=== PATIENT | male | born 1990 | race Caucasian/White ===

== ENCOUNTER 2019-02-24 18:04 | Inpatient (IN) ==
[2019-02-24 19:05] LABS: Bilirubin,Urine Negative (Negative); Blood,Urine Negative (Negative); Clarity,Urine Turbid (Clear); Color,Urine Yellow (Yellow); Glucose,Urine (UA) Normal (Normal); Ketones,Urine Negative (Negative); Leukocyte Esterase,Urine Negative (Negative); Nitrite,Urine Negative (Negative); Protein,Urine Trace mg/dL (Neg-Trace); Specific Gravity,Urine 1.018 (1.010-1.025); Urobilinogen,Urine Normal (Normal)
--- NOTE | 2019-02-24 19:05 | Emergency Department Note ---
Disposition Clinical Impression: Suicidal ideation Disposition: Admitted As Inpatient Condition: Fair Referrals: NONE,PCP [Primary Care Provider] - Forms: ED Satisfaction Letter General Adult HPI - General Chief complaint: ED Psychiatric Symptoms Stated complaint: SI Time Seen by Provider: 02/24/19 18:22 Source: patient Mode of arrival: ambulatory Limitations: no limitations Nursing Notes Reviewed: Yes Vital Signs Reviewed: Yes - History of Present Illness HPI Narrative: Patient is a 29-year-old male with past medical history of depression and PTSD as well as heroin abuse presents to the emergency department for evaluation of symptoms of feeling depressed, easily angered and thoughts that is like should and that he has no plan. States she was recently seen here in January 2019 and admitted to the 1A service. He states he was doing much better and discharged home with a prescription and follow up however he has had difficulty with follow-up due to his appointments being rescheduled by the facility [facility]. She states she is concerned that he is headed back to the direction about him and his prior visit. He denies any hallucinations. Denies any homicidal ideations. Admits to heroin use in the last week. Pain Scale: 0 - Related Data Home Medications Medication Instructions Recorded Confirmed Buprenorphine HCl/Naloxone HCl 1.5 tab PO DAILY 12/24/18 12/24/18 [Buprenorphin-Naloxon 8-2 mg Sl] Allergies Allergy/AdvReac Type Severity Reaction Status Date / Time Penicillins Allergy Redness of Verified 12/23/18 13:46 Skin All systems ED: reviewed and negative except as stated. Review of Systems: As Per HPI Psychiatric: Reports: depression, suicidal thoughts. Denies: homicidal thoughts, auditory hallucinations, visual hallucinations Past Medical History - Past Medical History Attestation: Yes The following information was validated with the patient. Medical history: Reports: no medical history Surgical history: Reports: tonsillectomy Psychiatric history: Reports: depression, PTSD - Social History Smoking Status: Current every day smoker Smokeless Tobacco Status: No Alcohol use: Reports: none Drug use: Reports: other Physical Exam CONSTITUTIONAL: Alert and oriented X3. In no apparent distress HEAD: Normocephalic; atraumatic. EYES: PERRL, no scleral icterus. NOSE: The nose is normal in appearance without rhinorrhea RESP: Normal chest excursion with respiration; breath sounds clear and equal bilaterally; no wheezes, rhonchi, or rales CARD: Regular rhythm, without murmurs, rub or gallop ABD: Non-distended; non-tender, soft,without rigidity, rebound or guarding SKIN: Normal for age and race; warm and dry; no apparent lesions PSYCH: Admits to suicidal thoughts without a plan. No homicidal thoughts. Depressed. - General Limitations: no limitations General appearance: alert, in no apparent distress Course Course Narrative: Patient will undergo undergo evaluation for medical clearance to be seen by the psychiatric 1A team for further evaluation and treatment. There is a sitter at the bedside and the patient's belongings were put safely away he was put in a gown. His girlfriend is at bedside. Vital Signs Temperature 97.7 F 02/24/19 18:06 Pulse Rate 76 02/24/19 18:06 Respiratory Rate 18 02/24/19 18:06 Blood Pressure 110/68 02/24/19 18:06 O2 Sat by Pulse Oximetry 99 02/24/19 18:06 Temperature 97.7 F 02/24/19 18:06 Pulse Rate 76 02/24/19 18:06 Respiratory Rate 18 02/24/19 18:06 Blood Pressure 110/68 02/24/19 18:06 O2 Sat by Pulse Oximetry 99 02/24/19 18:06 Oxygen Delivery Oxygen Delivery Room Air Medical Decision Making - Medical Records Medical records reviewed: Yes I reviewed the patient's medical records. - Lab Data Lab results reviewed: Yes I reviewed the patient's lab results. Result diagrams: 02/24/19 18:28 02/24/19 18:28 Lab Results 02/24/19 02/24/19 02/24/19 Range/Units 18:28 18:28 18:55 WBC 9.4 (4.3-11.1) K/mcL RBC 4.86 (4.19-5.50) M/mcL Hgb 14.5 (12.9-16.9) g/dL Hct 43.9 (37.5-50.1) % MCV 90.3 (83.0-100.0) fL MCH 29.8 (28.0-33.3) pg MCHC 33.0 (31.6-35.5) g/dL RDW 12.6 (11.5-14.5) % Plt Count 200 (140-400) K/mcL MPV 10.6 (9.4-12.4) fL Immature Gran % 0.4 (0-4) % Seg Neutrophils % 50.5 % Lymphocytes % 36.1 % Monocytes % 9.4 % Eosinophils % 3.0 % Basophils % 0.6 % Neutrophils # 4.8 (1.6-8.9) K/mcL Lymphocytes # 3.4 (0.6-4.6) K/mcL Monocytes # 0.9 (0.0-1.3) K/mcL Eosinophils # 0.3 (0.0-0.6) K/mcL Basophils # 0.1 (0.0-0.2) K/mcL Sodium 136 (136-145) mEq/L Potassium 4.1 (3.5-5.1) mEq/L Chloride 106 (98-107) mEq/L Carbon Dioxide 28 (23-29) mEq/L BUN 11 (6-20) mg/dL Creatinine 0.59 L (0.70-1.30) mg/dL Est GFR ( Amer) > 60 (> 60) Est GFR (Non-Af Amer) > 60 (> 60) BUN/Creatinine Ratio 19 (6-26) Glucose 115 H (70-105) mg/dL Calculated Osmolality 282 (280-300) Calcium 9.4 (8.6-10.3) mg/dL Urine Color Yellow (Yellow) Urine Clarity Turbid A (Clear) Urine pH 7.0 (5.0-8.0) pH Units Ur Specific [place] 1.018 (1.010-1.025) Urine Protein Trace (Neg-Trace) mg/dL Urine Glucose (UA) Normal (Normal) mg/dL Urine Ketones Negative (Negative) mg/dL Urine Blood Negative (Negative) Urine Nitrite Negative (Negative) Urine Bilirubin Negative (Negative) Urine Urobilinogen Normal (Normal) mg/dL Ur Leukocyte Esterase Negative (Negative) Urine Microscopic RBC 5-15 H (0-3) per hpf Urine Microscopic WBC 0-3 (0-3) per hpf Ur Squamous Epith Cells None Seen (None-Few) per lpf Urine Bacteria None Seen (None-Few) per hpf Hyaline Casts None Seen (None-Few) per lpf Salicylates < 2.5 L (15.0-30.0) mg/dL Urine Opiates Screen (Wtynvt=286) ng/mL Acetaminophen < 10 L (10-20) mcg/mL Ur Barbiturates Screen (Hicjmo=845) ng/mL Ur Phencyclidine Scrn (Cutoff=25) ng/mL Ur Amphetamines Screen (Wyczvj=4583) ng/mL U Benzodiazepines Scrn (Lxajce=720) ng/mL Urine Cocaine Screen (Cutoff= 300) ng/mL U Marijuana (THC) Screen (Cutoff = 50) ng/mL Ur Drug Screen Interp Ethyl Alcohol < 10 (Less than 10) mg/dL 02/24/19 Range/Units 18:55 WBC (4.3-11.1) K/mcL RBC (4.19-5.50) M/mcL Hgb (12.9-16.9) g/dL Hct (37.5-50.1) % MCV (83.0-100.0) fL MCH (28.0-33.3) pg MCHC (31.6-35.5) g/dL RDW (11.5-14.5) % Plt Count (140-400) K/mcL MPV (9.4-12.4) fL Immature Gran % (0-4) % Seg Neutrophils % % Lymphocytes % % Monocytes % % Eosinophils % % Basophils % % Neutrophils # (1.6-8.9) K/mcL Lymphocytes # (0.6-4.6) K/mcL Monocytes # (0.0-1.3) K/mcL Eosinophils # (0.0-0.6) K/mcL Basophils # (0.0-0.2) K/mcL Sodium (136-145) mEq/L Potassium (3.5-5.1) mEq/L Chloride (98-107) mEq/L Carbon Dioxide (23-29) mEq/L BUN (6-20) mg/dL Creatinine (0.70-1.30) mg/dL Est GFR ( Amer) (> 60) Est GFR (Non-Af Amer) (> 60) BUN/Creatinine Ratio (6-26) Glucose (70-105) mg/dL Calculated Osmolality (280-300) Calcium (8.6-10.3) mg/dL Urine Color (Yellow) Urine Clarity (Clear) Urine pH (5.0-8.0) pH Units Ur Specific [place] (1.010-1.025) Urine Protein (Neg-Trace) mg/dL Urine Glucose (UA) (Normal) mg/dL Urine Ketones (Negative) mg/dL Urine Blood (Negative) Urine Nitrite (Negative) Urine Bilirubin (Negative) Urine Urobilinogen (Normal) mg/dL Ur Leukocyte Esterase (Negative) Urine Microscopic RBC (0-3) per hpf Urine Microscopic WBC (0-3) per hpf Ur Squamous Epith Cells (None-Few) per lpf Urine Bacteria (None-Few) per hpf Hyaline Casts (None-Few) per lpf Salicylates (15.0-30.0) mg/dL Urine Opiates Screen Positive H (Rzygkl=438) ng/mL Acetaminophen (10-20) mcg/mL Ur Barbiturates Screen Negative (Kdvxgb=769) ng/mL Ur Phencyclidine Scrn Negative (Cutoff=25) ng/mL Ur Amphetamines Screen Negative (Ectwvu=0774) ng/mL U Benzodiazepines Scrn Negative (Wchxsh=930) ng/mL Urine Cocaine Screen Negative (Cutoff= 300) ng/mL U Marijuana (THC) Screen Negative (Cutoff = 50) ng/mL Ur Drug Screen Interp See Below Ethyl Alcohol (Less than 10) mg/dL S.B.A.R. - S.B.A.R. Situation: Demographics, MOA Background: Presenting Complaint, Relevant PMH, Meds, & Allergies Assessment: Vital Signs, Course and respsone to treatment, Exam Concerns, Patient/Family Expectation, Pertinant Lab Results, Outstanding Labs Recommendation: Barrier(s) to disposition, Recommendation based on pending st udies, treatments, or consults S.B.A.R. Report Given to: Dr. Yassine Zurita S.B.A.R. Repor Time: 19:44 Attestation Statement - Attestation Attestation: I, Yassine Zurita, examined this patient and my medical decision-making was reviewed with the MANAGER PHARMACY/PA/Advanced Practice Nurse/Resident Physician. I agree with the documented findings, disposition and treatment plan as described except to the extent set forth below. 29-year-old male brought to emergency department for evaluation of anxiety, depression, suicidal ideation. Patient was recently discharged from the hospital and he is been unable to obtain psychiatric follow-up. Patient feels these have not wrong direction". Patient does not have a concrete plan. Patient was medically cleared and evaluated by behavioral health who accepted him to 1A. patient comfortable to plan of action.
[2019-02-24 19:08] LABS: Basophils # 0.1 K/mcL (0.0-0.2); Basophils % 0.6 %; Eosinophils # 0.3 K/mcL (0.0-0.6); Hematocrit 43.9 % (37.5-50.1); Hemoglobin 14.5 g/dL (12.9-16.9); Immature Granulocytes % 0.4 % (0-4); Lymphocytes # 3.4 K/mcL (0.6-4.6); Lymphocytes % 36.1 %; Mean Corpuscular Hemoglobin 29.8 pg (28.0-33.3); Mean Corpuscular Volume 90.3 fL (83.0-100.0); Mean Platelet Volume 10.6 fL (9.4-12.4); Monocytes # 0.9 K/mcL (0.0-1.3); Monocytes % 9.4 %; Neutrophils # 4.8 K/mcL (1.6-8.9); Platelet Count 200 K/mcL (140-400); Red Blood Count 4.86 M/mcL (4.19-5.50); Red Cell Distribution Width 12.6 % (11.5-14.5); Segmented Neutrophils % 50.5 %
[2019-02-24 19:08] LABS: Bacteria,Urine None Seen per hpf (None-Few); Hyaline Casts,Urine None Seen per lpf (None-Few); Squamous Epithelial Cell,Urine None Seen per lpf (None-Few); WBC,Urine 0-3 per hpf (0-3)
[2019-02-24 19:15] LABS: Amphetamine Screen,Urine Negative ng/mL (Cutoff=1000); Barbiturate Screen,Urine Negative ng/mL (Cutoff=200); Benzodiazepines Screen,Urine Negative ng/mL (Cutoff=200); Cannabinoid Screen,Urine Negative ng/mL (Cutoff = 50); Cocaine Screen,Urine Negative ng/mL (Cutoff= 300); Opiate Screen,Urine Positive ng/mL (Cutoff=300); Phencyclidine Screen,Urine Negative ng/mL (Cutoff=25)
[2019-02-24 19:25] LABS: Acetaminophen < 10 mcg/mL (10-20); BUN/Creatinine Ratio 19 (6-26); Blood Urea Nitrogen 11 mg/dL (6-20); Calcium 9.4 mg/dL (8.6-10.3); Carbon Dioxide 28 mEq/L (23-29); Chloride 106 mEq/L (98-107); Ethanol < 10 mg/dL (Less than 10); Glucose 115 mg/dL (70-105); Osmolality,Calculated 282 (280-300); Potassium 4.1 mEq/L (3.5-5.1); Salicylate < 2.5 mg/dL (15.0-30.0); Sodium 136 mEq/L (136-145); eGFR For Non-African Americans > 60 (> 60)
[2019-02-24] MEDS ORDERED: Acetaminophen 325 MG TABLET PO PRN (22:25)
[2019-02-24] MEDS ORDERED: Mag Hydrox/Al Hydrox/Simeth 30 ML UDC PO PRN (22:25)
[2019-02-24] MEDS ORDERED: *HR* LORazepam 1 MG TABLET PO PRN (22:25)
[2019-02-24] MEDS ORDERED: *HR* LORazepam 2 MG/ML VIAL IM PRN (22:25)
[2019-02-24] MEDS ORDERED: MOM Conc 10 ML UD.LIQ PO PRN (22:25)
[2019-02-24] MEDS ORDERED: Haloperidol Lactate 5 MG/ML VIAL IM PRN (22:25)
[2019-02-24] MEDS: traZODone 50 MG TABLET PO PRN (23:29)
[2019-02-24] MEDS: hydrOXYzine pamoate 25 MG CAPSULE PO PRN (23:29)
[2019-02-25] MEDS: Nicotine 21 MG PATCH.TD24 TD SCH (09:46)
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
[2019-02-25] MEDS: *HR* Buprenorphine HCl 8 MG TAB.SUBL SL SCH (11:19)
[2019-02-25] MEDS ORDERED: *HR* Buprenorphine HCl 2 MG SUBLINGUAL TABLET SL SCH (21:00)
[2019-02-25] MEDS: hydrOXYzine pamoate 25 MG CAPSULE PO PRN (21:04)
[2019-02-25] MEDS: traZODone 50 MG TABLET PO PRN (21:04)
[2019-02-26] MEDS: *HR* Buprenorphine HCl 8 MG TAB.SUBL SL SCH (08:42)
[2019-02-26] MEDS: Nicotine 21 MG PATCH.TD24 TD SCH (08:42)
--- NOTE | 2019-02-26 10:35 | Psychiatry Progress Note ---
Date of Encounter: 02/26/19 Time of Encounter: 10:31 Subjective Interval history: patient has been isolating to his room. Remains depressed and hopeless with a lack of itnerests and excess guilt. Poor sleep. Is tolerating being back on meds. Wants linked with a new agency. Didn't attend any groups. Review of Systems Psychiatric: Reports: depression, suicidal ideation, change in appetite, hopelessness, irritability. Denies: homicidal ideation, auditory hallucinations, visual hallucinations Results - Vital Signs Vital Signs: Temp Pulse Resp BP Pulse Ox 97.5 F L 90 18 107/71 95 02/26/19 09:00 02/26/19 09:00 02/26/19 09:00 02/26/19 09:00 02/26/19 09:00 Assessment and Plan (1) Depression Current visit: No Status: Acute Plan: Continue hospitalization, Close observation, Suicide Precautions per unit protocol, Encourage participation in unit milieu, Group Therapy, Monitor sleep, Monitor appetite Additional Plan: Continue current medications, encourage groups, therapist working on linkage Risks, benefits, side effects, alternatives discussed w/pt: Yes Patient agreeable to treatment: Yes Qualifiers: Depression Type: major depressive disorder Major depression recurrence: single episode Active/Remission status: currently active Major depression episode severity: severe Psychotic features: without psychotic features Qualified Code(s): F32.2 - Major depressive disorder, single episode, severe without psychotic features Consult Discharge Plan - Plan Referrals: NONE,PCP [Primary Care Provider] - Psychiatry Exam - Constitutional Vitals: Temp Pulse Resp BP Pulse Ox 97.5 F L 90 18 107/71 95 02/26/19 09:00 02/26/19 09:00 02/26/19 09:00 02/26/19 09:00 02/26/19 09:00 General appearance: age & developmentally appropriate, well-groomed, well- nourished - Musculoskeletal Gait: normal Station: relaxed Strength & Tone: normal for patient - Psychiatric Patient Orientation: Yes Person, Yes Time, Yes Place Level of alertness: Alert Behavior: calm, cooperative Psychomotor activity: Normal Eye Contact: Maintains Eye Contact Mood Description: Euthymic/stable Patient description of mood: better Affect description: congruent with mood, full range Speech Volume: Normal Speech pattern: normal rate, normal rhythm, normal tone, fluent, spontaneous Language & Vocabulary: consistent with education Thought Process: Linear, Goal Oriented Thought Content: No Suicidal ideation, No Homicidal ideation, No Overt delusions Perceptual Disturbances: No Auditory hallucinations, No Visual hallucinations Attention Span Ability: Capable of Focused Attention Memory Description: Grossly Intact Patient Reliability: Reliable Historian Fund of knowledge: Yes abstraction ability, Yes aware of current events Intelligence Estimate: Average Judgment: Limited Insight: Partial
[2019-02-26] MEDS: *HR* Buprenorphine HCl 2 MG SUBLINGUAL TABLET SL SCH (18:28)
[2019-02-26] MEDS: hydrOXYzine pamoate 25 MG CAPSULE PO PRN (21:48)
[2019-02-26] MEDS: traZODone 50 MG TABLET PO PRN (21:48)
--- NOTE | 2019-02-27 08:03 | Psychiatry Progress Note ---
Date of Encounter: 02/27/19 Time of Encounter: 08:01 Subjective Interval history: patient says he is feeling better. No SI/HI. No psychosis. He is managing meds. No side effects. Review of Systems Psychiatric: Reports: depression. Denies: homicidal ideation, auditory hallucinations, visual hallucinations Results - Vital Signs Vital Signs: Temp Pulse Resp BP Pulse Ox 98.5 F 71 18 109/73 96 02/26/19 21:00 02/26/19 21:00 02/26/19 21:00 02/26/19 21:00 02/26/19 21:00 Assessment and Plan (1) Depression Current visit: No Status: Acute Plan: Continue hospitalization, Close observation, Suicide Precautions per unit protocol, Encourage participation in unit milieu, Group Therapy, Monitor sleep, Monitor appetite Additional Plan: continue meds, therapy groups, discharge planning Risks, benefits, side effects, alternatives discussed w/pt: Yes Patient agreeable to treatment: Yes Qualifiers: Depression Type: major depressive disorder Major depression recurrence: single episode Active/Remission status: currently active Major depression episode severity: severe Psychotic features: without psychotic features Qualified Code(s): F32.2 - Major depressive disorder, single episode, severe without psychotic features Consult Discharge Plan - Plan Referrals: NONE,PCP [Primary Care Provider] - Psychiatry Exam - Constitutional Vitals: Temp Pulse Resp BP Pulse Ox 98.5 F 71 18 109/73 96 02/26/19 21:00 02/26/19 21:00 02/26/19 21:00 02/26/19 21:00 02/26/19 21:00 General appearance: age & developmentally appropriate, well-groomed, well- nourished - Musculoskeletal Gait: normal Station: relaxed Strength & Tone: normal for patient - Psychiatric Patient Orientation: Yes Person, Yes Time, Yes Place Level of alertness: Alert Behavior: calm, cooperative Psychomotor activity: Normal Eye Contact: Maintains Eye Contact Mood Description: Euthymic/stable Patient description of mood: ok Affect description: congruent with mood, full range Speech Volume: Normal Speech pattern: normal rate, normal rhythm, normal tone, fluent, spontaneous Language & Vocabulary: consistent with education Thought Process: Linear, Goal Oriented Thought Content: No Suicidal ideation, No Homicidal ideation, No Overt delusions Perceptual Disturbances: No Auditory hallucinations, No Visual hallucinations Attention Span Ability: Capable of Focused Attention Memory Description: Grossly Intact Patient Reliability: Reliable Historian Fund of knowledge: Yes abstraction ability, Yes aware of current events Intelligence Estimate: Average Judgment: Good Insight: Full
[2019-02-27] MEDS: Nicotine 21 MG PATCH.TD24 TD SCH (09:19)
[2019-02-27] MEDS: *HR* Buprenorphine HCl 8 MG TAB.SUBL SL SCH (09:19)
[2019-02-27] MEDS: *HR* Buprenorphine HCl 2 MG SUBLINGUAL TABLET SL SCH (17:05)
[2019-02-27] MEDS: traZODone 50 MG TABLET PO PRN (21:35)
[2019-02-27] MEDS: hydrOXYzine pamoate 25 MG CAPSULE PO PRN (21:35)
[2019-02-28] MEDS: *HR* Buprenorphine HCl 8 MG TAB.SUBL SL SCH (09:53)
[2019-02-28] MEDS: Nicotine 21 MG PATCH.TD24 TD SCH (09:53)
--- NOTE | 2019-02-28 09:55 | Discharge Summary ---
Date of Encounter: 02/28/19 Time of Encounter: 09:53 Diagnosis - Discharge Diagnosis (1) Depression Status: Acute Qualifiers: Depression Type: major depressive disorder Major depression recurrence: s benson episode Active/Remission status: currently active Major depression episode severity: severe Psychotic features: without psychotic features Qualified Code(s): F32.2 - Major depressive disorder, single episode, severe without psychotic features Medications - Discharge Medications Prescriptions: hydrOXYzine pamoate [HydrOXYzine Pamoate] 25 mg PO TID PRN #60 capsule PRN Reason: Anxiety Prazosin [Minipress] 1 mg PO HS #30 capsule traZODone [TraZODone] 50 mg PO HS PRN #30 tablet PRN Reason: Insomnia Sertraline [Zoloft] 50 mg PO DAILY #30 tablet Buprenorphine HCl/Naloxone HCl [Buprenorphin-Naloxon 8-2 mg Sl] 1.5 tab SL DAILY 12/24/18 [History] Prazosin [Minipress] 1 mg PO HS #30 capsule 02/28/19 [Rx] Sertraline [Zoloft] 50 mg PO DAILY #30 tablet 02/28/19 [Rx] hydrOXYzine pamoate [HydrOXYzine Pamoate] 25 mg PO TID PRN #60 capsule 02/28/19 [Rx] traZODone [TraZODone] 50 mg PO HS PRN #30 tablet 02/28/19 [Rx] Allergy/AdvReac Type Severity Reaction Status Date / Time Penicillins Allergy Redness of Verified 12/23/18 13:46 Skin Results Procedures and tests throughout hospitalization: Completed Lab Orders Category Date Time Status Acetaminophen Stat Lab 02/24/19 18:28 Completed Basic Metabolic Panel Stat Lab 02/24/19 18:28 Completed Complete Blood Count [HEME] Stat Lab 02/24/19 18:28 Completed Drug Screen, Urine [UCHEM] Stat Lab 02/24/19 18:55 Completed Ethanol Stat Lab 02/24/19 18:28 Completed Salicylate Stat Lab 02/24/19 18:28 Completed Urinalysis reflex Microscopic [URIN] Stat Lab 02/24/19 18:55 Completed Provider Date of admission: 02/27/19 10:35 Primary care physician: PCP NONE Discharging clinician: Amy Coats Psychiatry Exam - Constitutional Vitals: Temp Pulse Resp BP Pulse Ox 98.6 F 87 20 106/63 97 02/27/19 20:36 02/27/19 20:36 02/27/19 20:36 02/27/19 20:36 02/27/19 20:36 General appearance: age & developmentally appropriate, well-groomed, well- nourished - Musculoskeletal Gait: normal Station: relaxed Strength & Tone: normal for patient - Psychiatric Patient Orientation: Yes Person, Yes Time, Yes Place Level of alertness: Alert Behavior: calm, cooperative Psychomotor activity: Normal Eye Contact: Maintains Eye Contact Mood Description: Euthymic/stable Patient description of mood: Good Affect description: congruent with mood, full range Speech Volume: Normal Speech pattern: normal rate, normal rhythm, normal tone, fluent, spontaneous Language & Vocabulary: consistent with education Thought Process: Linear, Goal Oriented Thought Content: No Suicidal ideation, No Homicidal ideation, No Overt delusions Perceptual Disturbances: No Auditory hallucinations, No Visual hallucinations Attention Span Ability: Capable of Focused Attention Memory Description: Grossly Intact Patient Reliability: Reliable Historian Fund of knowledge: Yes abstraction ability, Yes aware of current events Intelligence Estimate: Average Judgment: Good Insight: Full Hospital Course Hospital course: Mr. Keller is a 29 year old male who was admitted for depression and suicidal ideations. He was started back on his Zoloft and Vistaril for anxiety and trazodone for insomnia prasosin for nightmares.Patient was educated of diagnosis and the risk-benefit side effects of this alternative treatment options and was monitored for responsiveness and side effects. Mood anxiety sleep and appetite interest improved as did future orientation. Self-harm thoughts subsided, thinking was clear, psychosis not present and mood stabilized. Patient was able to attend both individual and group therapy sessions as well as meet with the psychiatrist daily and urged to discuss any medication or treatment issues or other concerns. The patient was educated primarily by verbal means about their diagnosis and manifestations in their life. The option for treatment including group and individual therapy programming was offered to the patient in addition to the use of medications with all their potential risks, benefits, and side effects as well as the risks of not taking medication and non-adhereance were discussed with the patient at length. The patient was given the opportunity to ask questions and was noted to participate in the treatment in the planning process. The patient felt ready and eager to be discharged from the inpatient psychiatric unit to continue on with treatment as an outpatient. The patient agreed that is they were safe for this disposition. The patient was considered to be able to participate in informed consent and decision making with respect to medical, legal, and financial issues of the time of discharge. At the time of discharge the patient adamantly denied any concerns for lethality including suicidal or homicidal thoughts ideations or plans and was future oriented toward ongoing mental health care. Time spent discussing smoking cessation with patient: 3 to 10 minutes Does patient wish to continue nicotine replacement upon disc: No - Time Spent with Patient Total time spent providing and/or coordinating discharge services: 25 Less than 30 minutes Specific discharge activities: Interval history reviewed. Available labs reviewed . Psychotherapy provided. Patient had an opportunity to ask questions and address concerns. Patient was in agreement with the treatment plan. The risks benefits and side effects of medications were discussed with the patient, including alternatives and treatment. The patient was educated on the abstaining from any alcohol or illicit substances, following up with all scheduled appointments, and taking all medications as prescribed. Assessment and Plan - Patient/Caregiver Discharge Instructions Activity: resume usual activities as tolerated Diet: regular diet Additional Instructions: Continue current medications. Follow up with outpatient mental health. Encourage continued therapy in a group or individual setting. The patient was discharged to home. - Follow up Plan Follow up with: NONE,PCP [Primary Care Provider] - Functional capacity at discharge: independent ambulation Overall status at discharge: Stable Disposition: Home, Self-Care Quality - Multiple Antipsychotics Patient discharged on 2 or more antipsychotic medications: No Procedures - Procedures Procedures: Medication Management, Crisis Stabilization, Supportive Therapy, Group Therapy, Psychoeducational Therapy
[2019-02-28 10:50] VITALS: BP 97/67
== END 2019-02-28 13:30 | disposition home or self-care (01) | DRG 751 ==
LOC: 1ANU 18:04 → EMEROOARM 18:04 → 1ANU 22:36
PROVIDERS: ADMIT Psychiatry & Neurology Psychiatry; ATTEND Psychiatry & Neurology Psychiatry